=== PATIENT | female | born 1970 | race Two or more races ===

== ENCOUNTER 2020-11-07 12:05 | Emergency (ER) | payer SELFPAY ==
[~2020-11-07] VITALS: Ht 157.5 cm; Wt 63.5 kg
[2020-11-07 12:12] VITALS: BP 118/79
--- NOTE | 2020-11-07 12:37 | NUR ---
Patient discharged to home in stable condition. Written and verbal after care instructions given. Patient verbalizes understanding of instruction.
== END 2020-11-07 12:37 | disposition home or self-care (01) ==
LOC: ER 12:05
DX: S92.352A Displaced fracture of fifth metatarsal bone, left foot, initial encounter for closed fracture (principal); X50.1XXA Overexertion from prolonged static or awkward postures, initial encounter; Y93.01 Activity, walking, marching and hiking; Y92.89 Other specified places as the place of occurrence of the external cause; Y99.8 Other external cause status

== ENCOUNTER 2021-12-02 14:34 | Emergency (ER) | payer BC ==
[~2021-12-02] VITALS: Ht 154.9 cm; Wt 60.8 kg
[2021-12-02 15:16] VITALS: BP 140/89
[2021-12-02] MEDS ORDERED: CLINDAMYCIN 900 MG in IV D5W 100 ML IV ONE (15:30)
[2021-12-02] MEDS ORDERED: KETOROLAC TROMETHAMINE INJ 30 MG/ML VIAL IV ONE (15:30)
[2021-12-02] MEDS ORDERED: IV NS 0.9% 1,000 ML BAG IV ONE (15:30)
[2021-12-02] MEDS ORDERED: ACETAMINOPHEN 325 MG TABLET PO ONE (15:30)
[2021-12-02] MEDS ORDERED: KETOROLAC TROMETHAMINE 15 MG/ML VIAL ONE (15:42)
[2021-12-02] MEDS ORDERED: ACETAMINOPHEN 325 MG TABLET ONE (15:42)
--- NOTE | 2021-12-02 15:48 | NUR ---
SIGNED WAIVER FORM. STATES "MY TUBES WERE TIED 14YEARS AGO"
[2021-12-02 15:51] LABS: BASOPHILS # (AUTO) 0.1 K/uL (0.0-0.2); BASOPHILS % (AUTO) 0.6 % (0.0-2.0); HEMATOCRIT 40 % (33-45); HEMOGLOBIN 13.2 g/dL (11.5-14.8); LYMPHOCYTES # (AUTO) 3.4 K/uL (0.8-4.8); LYMPHOCYTES % (AUTO) 33.8 % (20.0-44.0); MEAN CORPUSCULAR HGB CONC 33 g/dl (31.0-36.0); MEAN CORPUSCULAR VOLUME 91 fL (82-100); MONOCYTES % (AUTO) 9.9 % (2.0-12.0); NEUTROPHILS # (AUTO) 5.6 K/uL (1.8-8.9); NEUTROPHILS % (AUTO) 54.7 % (43.0-81.0); PLATELET COUNT (AUTO) 291 K/uL (150-450); RED BLOOD CELL COUNT(AUTO) 4.37 MIL/uL (4.0-5.2); WHITE BLOOD COUNT (AUTO) 10.2 K/uL (4.3-11.0)
[2021-12-02 16:00] LABS: CALCIUM, SERUM 9.2 mg/dL (8.5-10.1); CREATININE 0.8 mg/dL (0.6-1.3); POTASSIUM 3.9 mmol/L (3.5-5.1)
[2021-12-02 16:11] LABS: ALBUMIN 3.7 g/dL (3.4-5.0); BILIRUBIN,DIRECT 0.1 mg/dL (0.0-0.2); BILIRUBIN,TOTAL 0.5 mg/dL (0.2-1.0); TOTAL PROTEIN, SERUM 9.1 g/dL (6.4-8.2)
[2021-12-02] MEDS ORDERED: IOHEXOL-300 100 ML VIAL IV ONE (16:29)
[2021-12-02] MEDS ORDERED: IV NS 0.9% 250 ML IV ONE (16:31)
[2021-12-02] MEDS ORDERED: CT SWABBABLE VALVE TRANS SET 1 EA INFUS.SET MC ONE (16:31)
[2021-12-02] MEDS ORDERED: IBUP-1955 PO (19:07)
[2021-12-02] MEDS ORDERED: HYDR-4303 PO (19:07)
[2021-12-02] MEDS ORDERED: AMOX-430 PO (19:13)
--- NOTE | 2021-12-02 19:16 | NUR ---
Patient discharged to home in stable condition. Written and verbal after care instructions given. Patient verbalizes understanding of instruction.
== END 2021-12-02 19:46 | disposition home or self-care (01) ==
LOC: ER 14:42
DX: K04.6 Periapical abscess with sinus (principal); K02.9 Dental caries, unspecified; R51.9 Headache, unspecified; R74.01 Elevation of levels of liver transaminase levels; J32.0 Chronic maxillary sinusitis
CPT/HCPCS: 99285; 96365; 70487; 96375; 85025; 80048; 87040 ×2; 83605; 80076; 36415; J3490; J7060; J7030; J7050; Q9967; J1885

== ENCOUNTER 2022-02-09 14:59 | Emergency (ER) | payer BC ==
[~2022-02-09] VITALS: Ht 157.5 cm; Wt 59.0 kg
[~2022-02-09 14:59] MED LIST: AMOX-430 PO; HYDR-4303 PO; IBUP-1955 PO
[2022-02-09 15:18] VITALS: BP 156/82
== END 2022-02-09 15:49 | disposition home or self-care (01) ==
LOC: ER 15:14
DX: S83.91XA Sprain of unspecified site of right knee, initial encounter (principal); X50.1XXA Overexertion from prolonged static or awkward postures, initial encounter; Y93.89 Activity, other specified; Y92.89 Other specified places as the place of occurrence of the external cause; Y99.8 Other external cause status

== ENCOUNTER 2023-05-15 14:20 | Emergency (ER) | payer BC, MEDICAID ==
[~2023-05-15] VITALS: Ht 154.9 cm; Wt 59.0 kg
[~2023-05-15 14:20] MED LIST changes: +LIDO30AD10 TP
[2023-05-15] MEDS ORDERED: CARI350T PO (16:40)
[2023-05-15 16:47] VITALS: BP 117/77; TEMP 98; O2SAT 97
== END 2023-05-15 16:47 | disposition home or self-care (01) ==
LOC: ER 14:27
DX: S23.41XA Sprain of ribs, initial encounter (principal); X58.XXXA Exposure to other specified factors, initial encounter; Y93.89 Activity, other specified; Y92.89 Other specified places as the place of occurrence of the external cause; Y99.8 Other external cause status
CPT/HCPCS: 71100-TC

== ENCOUNTER 2023-12-08 16:19 | Emergency (ER) | payer MEDICAID ==
[~2023-12-08] VITALS: Ht 154.9 cm; Wt 61.2 kg
[~2023-12-08 16:19] MED LIST changes: +CARI350T PO
[2023-12-08 16:24] VITALS: BP 129/79; TEMP 98
[2023-12-08] MEDS ORDERED: AMOX/CLAVULANATE 875 MG TABLET ONE (16:51)
[2023-12-08] MEDS ORDERED: oxyCODONE/APAP (5/325 MG) 1 UDTAB TABLET ONE (16:51)
[2023-12-08] MEDS: AMOX/CLAVULANATE 875 MG TABLET PO ONE (16:53)
[2023-12-08] MEDS: oxyCODONE/APAP (5/325 MG) 1 UDTAB TABLET PO ONE (16:53)
[2023-12-08] MEDS ORDERED: AMOX-430 PO (17:41)
[2023-12-08] MEDS ORDERED: KETO10TA2 PO (17:41)
[2023-12-08 17:53] VITALS: O2SAT 98
== END 2023-12-08 17:55 | disposition home or self-care (01) ==
LOC: ER 16:42
DX: K03.81 Cracked tooth (principal); F19.10 Other psychoactive substance abuse, uncomplicated; F17.200 Nicotine dependence, unspecified, uncomplicated; Z60.2 Problems related to living alone

== ENCOUNTER 2023-12-28 13:21 | Emergency (ER) | payer MEDICAID ==
[~2023-12-28] VITALS: Ht 154.9 cm; Wt 59.0 kg
[~2023-12-28 13:21] MED LIST changes: +KETO10TA2 PO
[2023-12-28] MEDS ORDERED: diphenhydrAMINE HCL 50 MG/ML VIAL ONE (15:04)
[2023-12-28] MEDS ORDERED: METOCLOPRAMIDE HCL 10 MG/2 ML VIAL ONE (15:04)
[2023-12-28 15:06] LABS: BASOPHILS # (AUTO) 0.1 K/uL (0.0-0.2); BASOPHILS % (AUTO) 0.5 % (0.0-2.0); EOSINOPHILS % (AUTO) 0.4 % (0.0-6.0); HEMATOCRIT 45 % (33-45); HEMOGLOBIN 15.1 g/dL (11.5-14.8); LYMPHOCYTES % (AUTO) 37.8 % (20.0-44.0); MEAN CORPUSCULAR HEMOGLOBIN 31 PG (26.0-33.0); MEAN CORPUSCULAR HGB CONC 34 g/dl (31.0-36.0); MEAN CORPUSCULAR VOLUME 93 fL (82-100); MONOCYTES # (AUTO) 0.6 K/uL (0.1-1.30); MONOCYTES % (AUTO) 6.1 % (2.0-12.0); NEUTROPHILS # (AUTO) 5.9 K/uL (1.8-8.9); NEUTROPHILS % (AUTO) 55.2 % (43.0-81.0); PLATELET COUNT (AUTO) 273 K/uL (150-450); RED BLOOD CELL COUNT(AUTO) 4.82 MIL/uL (4.0-5.2); RED CELL DISTRIBUTION WIDTH 13.7 % (11.5-15.0); WHITE BLOOD COUNT (AUTO) 10.7 K/uL (4.3-11.0)
[2023-12-28 15:20] LABS: CALCIUM, SERUM 9.2 mg/dL (8.5-10.1); CARBON DIOXIDE 25 mmol/L (21-32); CHLORIDE 103 mmol/L (98-107); CREATININE 0.8 mg/dL (0.6-1.3); GLUCOSE 86 mg/dL (74-106); POTASSIUM 4.1 mmol/L (3.5-5.1); SODIUM SERUM 138 mmol/L (136-145); UREA NITROGEN, BLOOD 12 mg/dL (7-18)
[2023-12-28] MEDS: IV NS 0.9% 1,000 ML BAG IV ONE (15:29)
[2023-12-28] MEDS: diphenhydrAMINE HCL 50 MG/ML VIAL IV ONE (15:29)
[2023-12-28] MEDS: METOCLOPRAMIDE HCL 10 MG/2 ML VIAL IV ONE (15:29)
[2023-12-28 15:31] LABS: INR 1.67 (0.91-1.10); PARTIAL THROMBOPLASTIN TIME 60.9 SEC (24.3-34.3); PROTHROMBIN TIME 17.1 SECS (9.2-11.1)
[2023-12-28 15:41] LABS: PREGNANCY TEST URINE QUAL NEGATIVE (NEGATIVE)
[2023-12-28 15:43] LABS: ALANINE AMINOTRANSFERASE 36 U/L (12-78); ALBUMIN 4.1 g/dL (3.4-5.0); ALKALINE PHOSPHATASE 53 U/L (46-116); ASPARTATE AMINOTRANSFERASE 31 U/L (15-37); BILIRUBIN,DIRECT 0.1 mg/dL (0.0-0.2); BILIRUBIN,TOTAL 0.4 mg/dL (0.2-1.0)
[2023-12-28 15:58] LABS: TOTAL PROTEIN, SERUM 8.9 g/dL (6.4-8.2)
[2023-12-28] MEDS ORDERED: METO5TAB87 PO (17:28)
[2023-12-28 17:43] VITALS: BP 145/99; TEMP 98.1; O2SAT 98
== END 2023-12-28 17:43 | disposition home or self-care (01) ==
LOC: ER 13:21
DX: R55 Syncope and collapse (principal); F17.200 Nicotine dependence, unspecified, uncomplicated; R10.2 Pelvic and perineal pain; Z79.1 Long term (current) use of non-steroidal anti-inflammatories (NSAID); Z79.891 Long term (current) use of opiate analgesic; Z98.890 Other specified postprocedural states; Z79.899 Other long term (current) drug therapy; Z60.2 Problems related to living alone
CPT/HCPCS: 99285; 96374; 70450; 71045; 96361; 96375; 93005; 85025; 80048; 80076; 84703; 36415; 84484 ×2; 85730; 83880; J1200; J2765; J7030

== ENCOUNTER 2024-06-08 21:42 | Emergency (ER) | payer MEDICAID ==
[~2024-06-08] VITALS: Ht 154.9 cm; Wt 59.0 kg
[~2024-06-08 21:42] MED LIST changes: +METO5TAB87 PO
[2024-06-08] MEDS ORDERED: KETOROLAC TROMETHAMINE INJ 30 MG/ML VIAL ONE (22:40)
[2024-06-08] MEDS: KETOROLAC TROMETHAMINE INJ 30 MG/ML VIAL IM ONE (22:45)
[2024-06-09] MEDS ORDERED: IBUP-1490 PO (00:41)
[2024-06-09 01:15] VITALS: BP 133/89; TEMP 98.4; O2SAT 96
== END 2024-06-09 01:16 | disposition home or self-care (01) ==
LOC: ER 21:48
DX: S20.219A Contusion of unspecified front wall of thorax, initial encounter (principal); W22.03XA Walked into furniture, initial encounter; Y93.01 Activity, walking, marching and hiking; Y92.099 Unspecified place in other non-institutional residence as the place of occurrence of the external cause; Y99.8 Other external cause status; F17.200 Nicotine dependence, unspecified, uncomplicated; Z98.890 Other specified postprocedural states; Z60.2 Problems related to living alone
CPT/HCPCS: 99285; 71250; 96372; J1885